=== PATIENT | female | born 1975 | race Caucasian/White ===

== ENCOUNTER 2016-09-18 20:11 | Emergency (ER) | payer SELFPAY ==
[2016-09-18 21:00] VITALS: BP 127/84
== END 2016-09-18 21:00 | disposition home or self-care (01) ==
LOC: ED 20:11
DX: G43.909 Migraine, unspecified, not intractable, without status migrainosus (principal); J45.909 Unspecified asthma, uncomplicated
CPT/HCPCS: J1885

== ENCOUNTER 2016-10-02 22:04 | Emergency (ER) | payer SELFPAY ==
[2016-10-03 00:13] VITALS: BP 135/89
== END 2016-10-03 01:04 | disposition home or self-care (01) ==
LOC: ED 22:04
DX: R51 Headache (principal); J45.909 Unspecified asthma, uncomplicated; R11.0 Nausea; Z79.899 Other long term (current) drug therapy
CPT/HCPCS: J1885; J2270; Q0162

== ENCOUNTER 2016-10-21 11:58 | Emergency (ER) | payer SELFPAY ==
[~2016-10-21] VITALS: Ht 162.6 cm; Wt 92.2 kg
[2016-10-21 13:18] LABS: BASOPHIL % 0.5 % (0-2); PLATELET COUNT 262 x10^3mcL (130-400)
[2016-10-21 13:19] LABS: RED CELL DISTRIBUTION WIDTH 15.6 % (11.5-14.5)
[2016-10-21 13:22] LABS: CALCIUM 8.5 mg/dL (8.5-10.1); CARBON DIOXIDE 29.2 mmol/L (21-32); CHLORIDE SERUM 107 mmol/L (98-107); CREATININE SERUM 0.7 mg/dL (0.6-1.0); GFR1 > 60 mL/min; GLUCOSE SERUM 102 mg/dL (74-106); POTASSIUM SERUM 3.8 mmol/L (3.5-5.1); SODIUM SERUM 142 mmol/L (136-145)
[2016-10-21 13:53] VITALS: BP 123/80
== END 2016-10-21 13:53 | disposition home or self-care (01) ==
LOC: ED 11:58
PROVIDERS: Emergency Medicine
DX: G43.909 Migraine, unspecified, not intractable, without status migrainosus (principal)
CPT/HCPCS: J0780; J1885

== ENCOUNTER 2017-02-02 11:48 | Emergency (ER) | payer SELFPAY ==
[2017-02-02 15:00] VITALS: BP 137/89
== END 2017-02-02 15:00 | disposition home or self-care (01) ==
LOC: ED 11:48
DX: G43.909 Migraine, unspecified, not intractable, without status migrainosus (principal); J45.909 Unspecified asthma, uncomplicated; N93.8 Other specified abnormal uterine and vaginal bleeding; Z98.890 Other specified postprocedural states
CPT/HCPCS: J1885; J2765

== ENCOUNTER 2017-02-21 11:28 | Emergency (ER) | payer SELFPAY ==
[2017-02-21 12:28] LABS: BASOPHIL % 0.5 % (0-2); PLATELET COUNT 266 x10^3mcL (130-400)
[2017-02-21 12:31] LABS: RED CELL DISTRIBUTION WIDTH 16.3 % (11.5-14.5)
[2017-02-21 12:36] LABS: CALCIUM 8.5 mg/dL (8.5-10.1); CARBON DIOXIDE 25.7 mmol/L (21-32); CHLORIDE SERUM 106 mmol/L (98-107); CREATININE SERUM 0.8 mg/dL (0.6-1.0); GFR1 > 60 mL/min; GLUCOSE SERUM 95 mg/dL (74-106); POTASSIUM SERUM 3.8 mmol/L (3.5-5.1); SODIUM SERUM 138 mmol/L (136-145)
[2017-02-21 12:40] LABS: ALBUMIN 3.4 g/dL (3.4-5.0); ALKALINE PHOSPHATASE 67 U/L (46-116); ALT/SGPT 24 U/L (14-59); AST/SGOT 15 U/L (15-37); BILIRUBIN TOTAL 0.26 mg/dL (0.20-1.00); LIPASE 125 IU/L (73-393); TOTAL PROTEIN, SERUM 7.3 g/dL (6.4-8.2)
[2017-02-21 13:18] VITALS: BP 120/74
== END 2017-02-21 13:55 | disposition home or self-care (01) ==
LOC: ED 11:28
PROVIDERS: Emergency Medicine
DX: K29.70 Gastritis, unspecified, without bleeding (principal); J45.909 Unspecified asthma, uncomplicated
CPT/HCPCS: 36415; J1885; Q0092

== ENCOUNTER 2017-03-01 12:22 | Emergency (ER) | payer SELFPAY ==
[~2017-03-01] VITALS: Ht 167.6 cm; Wt 88.5 kg
[2017-03-01 15:54] VITALS: BP 126/82
== END 2017-03-01 15:54 | disposition home or self-care (01) ==
LOC: ED 12:22
DX: G44.209 Tension-type headache, unspecified, not intractable (principal); F41.9 Anxiety disorder, unspecified; R10.13 Epigastric pain; E66.9 Obesity, unspecified; Z87.19 Personal history of other diseases of the digestive system
CPT/HCPCS: J1885; J3010; Q0162

== ENCOUNTER 2017-05-20 10:32 | Emergency (ER) | payer OTHER ==
[~2017-05-20] VITALS: Ht 172.7 cm; Wt 89.3 kg
[2017-05-20 10:34] VITALS: BP 129/88
== END 2017-05-20 12:40 | disposition home or self-care (01) ==
LOC: ED 10:32
DX: G43.909 Migraine, unspecified, not intractable, without status migrainosus (principal)
CPT/HCPCS: J1885; J2765

== ENCOUNTER 2017-07-29 21:24 | Emergency (ER) | payer OTHER ==
[~2017-07-29] VITALS: Ht 167.6 cm; Wt 88.9 kg
[2017-07-29 21:47] VITALS: Ht 167.6 cm; Wt 88.9 kg
[2017-07-29 23:51] LABS: BASOPHIL % 0.4 % (0-2); PLATELET COUNT 283 x10^3mcL (130-400)
[2017-07-29 23:54] LABS: RED CELL DISTRIBUTION WIDTH 14.8 % (11.5-14.5)
[2017-07-29 23:58] LABS: CALCIUM 8.5 mg/dL (8.5-10.1); CARBON DIOXIDE 28.7 mmol/L (21-32); CHLORIDE SERUM 105 mmol/L (98-107); CREATININE SERUM 0.7 mg/dL (0.6-1.0); GFR1 > 60 mL/min; GLUCOSE SERUM 99 mg/dL (74-106); POTASSIUM SERUM 3.8 mmol/L (3.5-5.1); SODIUM SERUM 141 mmol/L (136-145)
[2017-07-30 00:09] LABS: ALBUMIN 3.8 g/dL (3.4-5.0); ALKALINE PHOSPHATASE 55 U/L (46-116); AST/SGOT 16 U/L (15-37); BILIRUBIN TOTAL 0.3 mg/dL (0.20-1.00); TOTAL PROTEIN, SERUM 7.7 g/dL (6.4-8.2)
[2017-07-30 00:46] VITALS: BP 134/86
[2017-07-30 01:02] LABS: ALT/SGPT 25 U/L (14-59)
== END 2017-07-30 00:46 | disposition home or self-care (01) ==
LOC: ED 21:24
PROVIDERS: Emergency Medicine
DX: F41.9 Anxiety disorder, unspecified (principal)
CPT/HCPCS: 36415; 83880; Q0092

== ENCOUNTER 2017-08-09 12:11 | Emergency (ER) | payer OTHER ==
[~2017-08-09] VITALS: Ht 160 cm; Wt 88.5 kg
[2017-08-09 12:39] VITALS: Ht 160 cm; Wt 88.5 kg
[2017-08-09 13:18] VITALS: BP 125/73
== END 2017-08-09 13:18 | disposition home or self-care (01) ==
LOC: ED 12:11
DX: B34.9 Viral infection, unspecified (principal); J45.909 Unspecified asthma, uncomplicated

== ENCOUNTER 2017-08-19 09:54 | Emergency (ER) | payer OTHER ==
[~2017-08-19] VITALS: Ht 157.5 cm; Wt 88.9 kg
[2017-08-19 10:10] VITALS: Ht 157.5 cm; Wt 88.9 kg
[2017-08-19 12:19] VITALS: BP 126/64
== END 2017-08-19 12:19 | disposition home or self-care (01) ==
LOC: ED 09:54
DX: R10.9 Unspecified abdominal pain (principal); R11.2 Nausea with vomiting, unspecified; R19.7 Diarrhea, unspecified

== ENCOUNTER 2017-11-13 11:41 | Emergency (ER) | payer OTHER ==
[~2017-11-13] VITALS: Ht 157.5 cm; Wt 90.7 kg
[2017-11-13 11:44] VITALS: Ht 157.5 cm; Wt 90.7 kg
[2017-11-13 12:46] LABS: CALCIUM 8.3 mg/dL (8.5-10.1); CARBON DIOXIDE 27.7 mmol/L (21-32); CHLORIDE SERUM 105 mmol/L (98-107); CREATININE SERUM 0.8 mg/dL (0.6-1.0); GFR1 > 60 mL/min; GLUCOSE SERUM 93 mg/dL (74-106); POTASSIUM SERUM 3.8 mmol/L (3.5-5.1); SODIUM SERUM 140 mmol/L (136-145)
[2017-11-13 13:08] VITALS: BP 131/90
[2017-11-13 13:12] LABS: BASOPHIL % 0.5 % (0-2); PLATELET COUNT 280 x10^3mcL (130-400)
[2017-11-13 13:13] LABS: RED CELL DISTRIBUTION WIDTH 15.6 % (11.5-14.5)
== END 2017-11-13 13:08 | disposition home or self-care (01) ==
LOC: ED 11:41
PROVIDERS: Emergency Medicine
DX: N39.0 Urinary tract infection, site not specified (principal); J45.909 Unspecified asthma, uncomplicated; G43.909 Migraine, unspecified, not intractable, without status migrainosus
CPT/HCPCS: J0780; J1200; J7030

== ENCOUNTER 2017-11-20 21:58 | Emergency (ER) | payer OTHER ==
[~2017-11-20] VITALS: Ht 165.1 cm; Wt 93.4 kg
[2017-11-20 22:07] VITALS: Ht 165.1 cm; Wt 93.4 kg
[2017-11-21 00:51] LABS: BASOPHIL % 0.6 % (0-2); PLATELET COUNT 285 x10^3mcL (130-400); RED CELL DISTRIBUTION WIDTH 16.2 % (11.5-14.5)
[2017-11-21 01:24] LABS: ALBUMIN 3.9 g/dL (3.4-5.0); ALKALINE PHOSPHATASE 64 U/L (46-116); ALT/SGPT 29 U/L (14-59); AST/SGOT 17 U/L (15-37); BILIRUBIN TOTAL 0.4 mg/dL (0.20-1.00); CALCIUM 8.8 mg/dL (8.5-10.1); CARBON DIOXIDE 25.7 mmol/L (21-32); CHLORIDE SERUM 105 mmol/L (98-107); CREATININE SERUM 0.7 mg/dL (0.6-1.0); GFR1 > 60 mL/min; GLUCOSE SERUM 101 mg/dL (74-106); LIPASE 145 IU/L (73-393); SODIUM SERUM 137 mmol/L (136-145); TOTAL PROTEIN, SERUM 7.9 g/dL (6.4-8.2)
[2017-11-21 02:10] VITALS: BP 123/76
== END 2017-11-21 02:10 | disposition home or self-care (01) ==
LOC: ED 21:58
PROVIDERS: Emergency Medicine
DX: K29.00 Acute gastritis without bleeding (principal); N39.0 Urinary tract infection, site not specified; J45.909 Unspecified asthma, uncomplicated; G43.909 Migraine, unspecified, not intractable, without status migrainosus
CPT/HCPCS: 83880; J2270; Q0092; Q0162

== ENCOUNTER 2018-03-09 10:27 | Emergency (ER) | payer OTHER ==
[~2018-03-09] VITALS: Ht 162.6 cm; Wt 94.3 kg
[2018-03-09 11:18] LABS: BASOPHIL % 1.5 % (0-2); PLATELET COUNT 305 x10^3mcL (130-400)
[2018-03-09 11:25] LABS: CALCIUM 8.7 mg/dL (8.5-10.1); CARBON DIOXIDE 28.1 mmol/L (21-32); CHLORIDE SERUM 104 mmol/L (98-107); CREATININE SERUM 0.8 mg/dL (0.6-1.0); GFR1 > 60 mL/min; GLUCOSE SERUM 119 mg/dL (74-106); POTASSIUM SERUM 3.8 mmol/L (3.5-5.1); SODIUM SERUM 138 mmol/L (136-145)
[2018-03-09 11:35] LABS: RED CELL DISTRIBUTION WIDTH 15.8 % (11.5-14.5)
[2018-03-09 13:11] VITALS: BP 121/79
== END 2018-03-09 13:12 | disposition home or self-care (01) ==
LOC: ED 10:27
PROVIDERS: Emergency Medicine
DX: R42 Dizziness and giddiness (principal); J45.909 Unspecified asthma, uncomplicated; G43.909 Migraine, unspecified, not intractable, without status migrainosus
CPT/HCPCS: 36415; J8597; Q0162

== ENCOUNTER 2018-05-04 10:56 | Emergency (ER) | payer OTHER ==
[~2018-05-04] VITALS: Ht 165.1 cm; Wt 84.4 kg
[2018-05-04 11:33] LABS: BASOPHIL % 0.7 % (0-2); PLATELET COUNT 320 x10^3mcL (130-400)
[2018-05-04 11:39] LABS: CALCIUM 8.3 mg/dL (8.5-10.1); CARBON DIOXIDE 25.2 mmol/L (21-32); CHLORIDE SERUM 108 mmol/L (98-107); CREATININE SERUM 0.7 mg/dL (0.6-1.0); GFR1 > 60 mL/min; GLUCOSE SERUM 104 mg/dL (74-106); POTASSIUM SERUM 4.1 mmol/L (3.5-5.1); SODIUM SERUM 140 mmol/L (136-145)
[2018-05-04 11:50] LABS: RED CELL DISTRIBUTION WIDTH 16.8 % (11.5-14.5)
[2018-05-04 12:23] VITALS: BP 138/83
== END 2018-05-04 12:25 | disposition home or self-care (01) ==
LOC: ED 10:56
PROVIDERS: Emergency Medicine
DX: R53.1 Weakness (principal); R07.89 Other chest pain; G43.909 Migraine, unspecified, not intractable, without status migrainosus; J45.909 Unspecified asthma, uncomplicated
CPT/HCPCS: J1885; J2765; Q0092; Q0163

== ENCOUNTER 2018-08-12 08:35 | Emergency (ER) | payer OTHER ==
[~2018-08-12] VITALS: Ht 162.6 cm; Wt 97.5 kg
[2018-08-12 08:48] VITALS: Ht 162.6 cm; Wt 97.5 kg
[2018-08-12 10:53] VITALS: BP 140/80
== END 2018-08-12 10:53 | disposition home or self-care (01) ==
LOC: ED 08:35
DX: J32.9 Chronic sinusitis, unspecified (principal); G43.909 Migraine, unspecified, not intractable, without status migrainosus; F32.9 Major depressive disorder, single episode, unspecified; J45.909 Unspecified asthma, uncomplicated

== ENCOUNTER 2018-08-15 08:13 | Emergency (ER) | payer OTHER ==
[~2018-08-15] VITALS: Ht 162.6 cm; Wt 96.6 kg
[2018-08-15 08:24] VITALS: Ht 162.6 cm; Wt 96.6 kg
[2018-08-15 10:27] VITALS: BP 122/82
== END 2018-08-15 10:27 | disposition home or self-care (01) ==
LOC: ED 08:13
DX: S92.351A Displaced fracture of fifth metatarsal bone, right foot, initial encounter for closed fracture (principal); J45.909 Unspecified asthma, uncomplicated; G43.909 Migraine, unspecified, not intractable, without status migrainosus; F32.9 Major depressive disorder, single episode, unspecified; X50.1XXA Overexertion from prolonged static or awkward postures, initial encounter; Y93.01 Activity, walking, marching and hiking; Y92.89 Other specified places as the place of occurrence of the external cause; Y99.8 Other external cause status

== ENCOUNTER 2018-11-07 20:54 | Emergency (ER) | payer OTHER ==
[~2018-11-07] VITALS: Ht 162.6 cm; Wt 99.3 kg
[2018-11-07 20:57] VITALS: Ht 162.6 cm; Wt 99.3 kg
[2018-11-08 01:02] VITALS: BP 135/84
== END 2018-11-08 01:02 | disposition home or self-care (01) ==
LOC: ED 20:54
DX: J45.901 Unspecified asthma with (acute) exacerbation (principal); F32.9 Major depressive disorder, single episode, unspecified; G43.909 Migraine, unspecified, not intractable, without status migrainosus; Z79.899 Other long term (current) drug therapy
CPT/HCPCS: J7512; J7613; J7644

== ENCOUNTER 2019-01-20 12:05 | Emergency (ER) | payer OTHER ==
[~2019-01-20] VITALS: Ht 165.1 cm; Wt 95.7 kg
[2019-01-20 12:29] VITALS: Ht 165.1 cm; Wt 95.7 kg
[2019-01-20 16:53] LABS: CALCIUM 8.3 mg/dL (8.5-10.1); CHLORIDE SERUM 105 mmol/L (98-107); CREATININE SERUM 0.7 mg/dL (0.6-1.0); GFR1 > 60 mL/min; GLUCOSE SERUM 88 mg/dL (74-106); POTASSIUM SERUM 4.3 mmol/L (3.5-5.1); SODIUM SERUM 139 mmol/L (136-145)
[2019-01-20 17:02] LABS: ALBUMIN 3.9 g/dL (3.4-5.0); ALKALINE PHOSPHATASE 40 U/L (46-116); ALT/SGPT 77 U/L (14-59); AST/SGOT 47 U/L (15-37); BILIRUBIN TOTAL 0.4 mg/dL (0.20-1.00); TOTAL PROTEIN, SERUM 8.2 g/dL (6.4-8.2)
[2019-01-20 17:36] LABS: BASOPHIL % 0.5 % (0-2); PLATELET COUNT 326 x10^3mcL (130-400)
[2019-01-20 17:38] LABS: RED CELL DISTRIBUTION WIDTH 16.9 % (11.5-14.5)
[2019-01-20 18:05] VITALS: BP 125/77
== END 2019-01-20 18:05 | disposition home or self-care (01) ==
LOC: ED 12:05
PROVIDERS: Emergency Medicine
DX: R53.1 Weakness (principal); R51 Headache; R42 Dizziness and giddiness; R25.1 Tremor, unspecified; R11.0 Nausea; R63.1 Polydipsia; R35.8 Other polyuria; E11.9 Type 2 diabetes mellitus without complications; H11.31 Conjunctival hemorrhage, right eye; J45.909 Unspecified asthma, uncomplicated; G43.909 Migraine, unspecified, not intractable, without status migrainosus; F32.9 Major depressive disorder, single episode, unspecified; E78.00 Pure hypercholesterolemia, unspecified; Z98.890 Other specified postprocedural states
CPT/HCPCS: J2405; J7030

== ENCOUNTER 2019-02-15 08:50 | Emergency (ER) | payer OTHER ==
[~2019-02-15] VITALS: Ht 162.6 cm; Wt 96.2 kg
[2019-02-15 08:51] VITALS: Ht 162.6 cm; Wt 96.2 kg
[2019-02-15 10:28] VITALS: BP 130/98
== END 2019-02-15 10:28 | disposition home or self-care (01) ==
LOC: ED 08:50
DX: M75.91 Shoulder lesion, unspecified, right shoulder (principal); J45.909 Unspecified asthma, uncomplicated; E11.9 Type 2 diabetes mellitus without complications; E78.00 Pure hypercholesterolemia, unspecified; F32.9 Major depressive disorder, single episode, unspecified; G43.911 Migraine, unspecified, intractable, with status migrainosus

== ENCOUNTER 2019-05-24 10:32 | Emergency (ER) | payer OTHER ==
[~2019-05-24] VITALS: Ht 162.6 cm; Wt 98.4 kg
[2019-05-24 10:35] VITALS: Ht 162.6 cm; Wt 98.4 kg
[2019-05-24 12:50] VITALS: BP 132/83
== END 2019-05-24 12:50 | disposition home or self-care (01) ==
LOC: ED 10:32
DX: G43.909 Migraine, unspecified, not intractable, without status migrainosus (principal); J45.909 Unspecified asthma, uncomplicated; E11.9 Type 2 diabetes mellitus without complications; F32.9 Major depressive disorder, single episode, unspecified; E78.00 Pure hypercholesterolemia, unspecified; Z98.890 Other specified postprocedural states
CPT/HCPCS: J1200; J1885; J2765

== ENCOUNTER 2019-05-25 21:04 | Emergency (ER) | payer OTHER ==
[~2019-05-25] VITALS: Ht 162.6 cm; Wt 98.0 kg
[2019-05-25 21:17] VITALS: Ht 162.6 cm; Wt 98.0 kg
[2019-05-25 23:56] LABS: microscopic required? NO
[2019-05-26 00:10] LABS: BASOPHIL % 0.6 % (0-2); PLATELET COUNT 301 x10^3mcL (130-400)
[2019-05-26 00:13] LABS: RED CELL DISTRIBUTION WIDTH 15.2 % (11.5-14.5)
[2019-05-26 00:16] LABS: urine erythrocyte NEGATIVE (NEGATIVE)
[2019-05-26 00:28] LABS: CALCIUM 8.4 mg/dL (8.5-10.1); CARBON DIOXIDE 22.1 mmol/L (21-32); CHLORIDE SERUM 105 mmol/L (98-107); CREATININE SERUM 0.9 mg/dL (0.6-1.0); GFR1 > 60 mL/min; GLUCOSE SERUM 113 mg/dL (74-106); POTASSIUM SERUM 4.2 mmol/L (3.5-5.1); SODIUM SERUM 140 mmol/L (136-145)
[2019-05-26 00:32] LABS: ALBUMIN 3.7 g/dL (3.4-5.0); ALKALINE PHOSPHATASE 70 U/L (46-116); ALT/SGPT 59 U/L (14-59); AST/SGOT 34 U/L (15-37); BILIRUBIN TOTAL 0.3 mg/dL (0.20-1.00); LIPASE 120 IU/L (73-393); TOTAL PROTEIN, SERUM 7.5 g/dL (6.4-8.2)
[2019-05-26 02:16] VITALS: BP 117/87
== END 2019-05-26 02:16 | disposition home or self-care (01) ==
LOC: ED 21:04
PROVIDERS: Emergency Medicine
DX: R07.89 Other chest pain (principal); R10.13 Epigastric pain; R11.10 Vomiting, unspecified; R39.15 Urgency of urination; R42 Dizziness and giddiness; J45.909 Unspecified asthma, uncomplicated; E78.00 Pure hypercholesterolemia, unspecified; E11.9 Type 2 diabetes mellitus without complications; Z98.890 Other specified postprocedural states
CPT/HCPCS: 36415